=== PATIENT | female | born 1990 | race Caucasian/White ===

== ENCOUNTER 2018-12-28 06:26 | Inpatient (IN) | payer MEDICAID ==
[2018-12-28] MEDS ORDERED: LACTATED RINGER'S 1,000 ML IV (07:15)
[2018-12-28] MEDS ORDERED: BUTORPHANOL 2 MG INJ IV (07:30)
[2018-12-28] MEDS ORDERED: CARBOPROST 250 MCG INJ IM (07:30)
[2018-12-28] MEDS ORDERED: OXYTOCIN 30 UNITS/LR 500 ML IV ×2 (07:30)
[2018-12-28] MEDS ORDERED: MISOPROSTOL 200 MCG TAB PR (07:30)
[2018-12-28] MEDS ORDERED: METHYLERGONOVINE 0.2 MG INJ IM (07:30)
[2018-12-28] MEDS ORDERED: LIDOCAINE 1% (MPF) 30 ML INJ INJ (07:30)
[2018-12-28] MEDS ORDERED: IBUPROFEN 600 MG TAB PO (07:30)
[2018-12-28] MEDS: LACTATED RINGER'S 1,000 ML IV ×3 (07:44→22:31)
[2018-12-28 08:02] LABS: ADD MAN DIFF? NO
[2018-12-28 08:06] LABS: BASOPHILS % 0.3 % (0.0-2.0); EOSINOPHILS # 0.1 10^3/ul (0.0-0.5); EOSINOPHILS % 0.4 % (0.0-7.0); HEMATOCRIT 38.7 % (37.0-47.0); HEMOGLOBIN 13.1 g/dl (12.0-16.0); LYMPHOCYTES % 12.9 % (15.0-51.0); MEAN CORPUSCULAR HEMOGLOBIN 31.8 pg (29.0-33.0); MEAN CORPUSCULAR HGB CONC 33.9 g/dl (32.0-37.0); MEAN CORPUSCULAR VOLUME 93.9 fl (82.0-101.0); MEAN PLATELET VOLUME 11.1 fl (7.4-10.4); MONOCYTE # 0.9 10^3/ul (0.3-0.9); MONOCYTES % 5.8 % (0.0-11.0); NEUTROPHIL # 12.6 10^3/ul (1.6-7.5); NEUTROPHILS % 79.8 % (39.0-77.0); PLATELET COUNT 284 10^3/UL (140-415); RED BLOOD COUNT 4.12 10^6/ul (4.20-5.40); RED CELL DISTRIBUTION WIDTH 12.1 % (11.5-14.5)
[2018-12-28 08:06] LABS: WHITE BLOOD COUNT 15.8 10^3/ul (4.8-10.8)
[2018-12-28 08:25] LABS: PROTIME 12.3 Sec (11.9-14.9)
[2018-12-28 08:26] LABS: PARTIAL THROMBOPLASTIN TIME 27.3 Sec (23.0-35.0)
[2018-12-28 08:54] LABS: HEPATITIS B SURFACE ANTIGEN NEGATIVE (NEGATIVE)
[2018-12-28 21:30] LABS: RAPID PLASMA REAGIN NONREACTIVE (NR)
[2018-12-29] MEDS ORDERED: FENTAnyl 2MCG/ML-ROPIV 0.2% 100 ML (00:58)
[2018-12-29] MEDS: LACTATED RINGER'S 1,000 ML IV ×4 (01:11→18:35)
[2018-12-29] MEDS ORDERED: NALOXONE (0.4 MG/ML) INJ IV (02:00)
[2018-12-29] MEDS ORDERED: ONDANSETRON 4 MG INJ IV (02:00)
[2018-12-29] MEDS ORDERED: DIPHENHYDRAMINE 50 MG INJ IV (02:00)
[2018-12-29] MEDS: FENTAnyl 2MCG/ML-ROPIV 0.2% 100 ML BAG EPI ×3 (04:00→16:53)
[2018-12-29] MEDS: OXYTOCIN 30 UNITS/LR 500 ML IV ×2 (09:13→22:37)
[2018-12-29] MEDS: MINERAL OIL LIGHT 10 ML VIAL TOP (23:00)
[2018-12-29] MEDS: LACTATED RINGER'S 1,000 ML IV* (23:13)
[2018-12-29] MEDS ORDERED: METHYLERGONOVINE 0.2 MG INJ IM (23:30)
[2018-12-29] MEDS ORDERED: HYDROCODONE/APAP (5/325) TAB PO (23:30)
[2018-12-29] MEDS ORDERED: MISOPROSTOL 200 MCG TAB PR (23:30)
[2018-12-29] MEDS ORDERED: OXYTOCIN 30 UNITS/LR 500 ML IV (23:30)
[2018-12-29] MEDS ORDERED: CARBOPROST 250 MCG INJ IM (23:30)
[2018-12-30] MEDS: WITCH HAZEL/GLYCERIN PAD PR (01:23)
[2018-12-30] MEDS: IBUPROFEN 600 MG TAB PO ×4 (01:23→19:32)
[2018-12-30] MEDS: BENZOCAINE 20% 56 ML SPRAY TOP (01:24)
[2018-12-30] MEDS: LANOLIN HPA 1 PKT TOP ×2 (01:25→11:53)
[2018-12-30] MEDS: OXYTOCIN 30 UNITS/LR 500 ML IV ×2 (02:47→09:13)
[2018-12-30] MEDS: LACTATED RINGER'S 1,000 ML IV* ×3 (07:13→20:56)
[2018-12-30 07:48] LABS: WHITE BLOOD COUNT 25.9 10^3/ul (4.8-10.8)
[2018-12-30 07:48] LABS: ABNORMAL IP MESSAGE 1; HEMATOCRIT 34.2 % (37.0-47.0); HEMOGLOBIN 11.7 g/dl (12.0-16.0); MEAN CORPUSCULAR HEMOGLOBIN 31.7 pg (29.0-33.0); MEAN CORPUSCULAR HGB CONC 34.2 g/dl (32.0-37.0); MEAN CORPUSCULAR VOLUME 92.7 fl (82.0-101.0); MEAN PLATELET VOLUME 10.9 fl (7.4-10.4); PLATELET COUNT 231 10^3/UL (140-415); RED BLOOD COUNT 3.69 10^6/ul (4.20-5.40); RED CELL DISTRIBUTION WIDTH 12.3 % (11.5-14.5)
[2018-12-30 07:51] LABS: ADD MAN DIFF? YES; POSITIVE DIFF @See below
[2018-12-30 10:11] LABS: ANISOCYTOSIS 1+ (0-0); BAND NEUTROPHILS #M 3.1 10^3/ul (0.0-0.6); BAND NEUTROPHILS % (M) 12 % (0-4); LYMPHOCYTES #M 1.2 10^3/ul (0.8-2.9); LYMPHOCYTES % (M) 5 % (15-51); MONOCYTE #M 0.7 10^3/ul (0.3-0.9); MONOCYTES % (M) 3 % (0-11); PLATELET ESTIMATE NORMAL; POLYCHROMASIA 3+ (0-0); REACTIVE LYMPHOCYTES #M 0.5 10^3/ul (0.0-0.0); REACTIVE LYMPHOCYTES% (M) 2 % (0-0); SEGMENTED NEUTROPHILS (M) % 78 % (39-77); SMUDGE%M 1 % (0-0)
[2018-12-31] MEDS: IBUPROFEN 600 MG TAB PO ×3 (00:40→12:00)
[2018-12-31] MEDS: LACTATED RINGER'S 1,000 ML IV* (06:27)
[2018-12-31 08:17] LABS: ADD MAN DIFF? NO
[2018-12-31 08:24] LABS: WHITE BLOOD COUNT 15.3 10^3/ul (4.8-10.8)
[2018-12-31 08:24] LABS: BASOPHILS % 0.3 % (0.0-2.0); EOSINOPHILS # 0.1 10^3/ul (0.0-0.5); EOSINOPHILS % 0.7 % (0.0-7.0); HEMATOCRIT 32.4 % (37.0-47.0); HEMOGLOBIN 10.9 g/dl (12.0-16.0); LYMPHOCYTES # 1.8 10^3/ul (0.8-2.9); MEAN CORPUSCULAR HGB CONC 33.6 g/dl (32.0-37.0); MEAN PLATELET VOLUME 11.4 fl (7.4-10.4); MONOCYTE # 0.8 10^3/ul (0.3-0.9); NEUTROPHIL # 12.4 10^3/ul (1.6-7.5); NEUTROPHILS % 81.2 % (39.0-77.0); PLATELET COUNT 254 10^3/UL (140-415); RED BLOOD COUNT 3.41 10^6/ul (4.20-5.40); RED CELL DISTRIBUTION WIDTH 12.6 % (11.5-14.5)
[2018-12-31] MEDS: DIPHTH/TET/ACEL PERTUSS (ADULT) 0.5 ML VIAL IM* (09:00)
[2018-12-31] MEDS: BENZOCAINE 20% 56 ML SPRAY TOP (10:14)
[2018-12-31] MEDS: WITCH HAZEL/GLYCERIN PAD PR (10:14)
== END 2018-12-31 15:15 | disposition home or self-care (01) | DRG 807 ==
LOC: OBT 06:26 → PP1 12-30 00:56 → L-D 06:28 → OBT 07:05 → L-D 07:05
PROVIDERS: Obstetrics & Gynecology
PROC: 10E0XZZ Delivery of Products of Conception, External Approach (ICD-10-PCS; principal; 2018-12-29)
PROC: 0HQ9XZZ Repair Perineum Skin, External Approach (ICD-10-PCS; 2018-12-29)
PROC: 0UQGXZZ Repair Vagina, External Approach (ICD-10-PCS; 2018-12-29)
DX: O70.0 First degree perineal laceration during delivery (principal); O69.81X0 Labor and delivery complicated by cord around neck, without compression, not applicable or unspecified; Z37.0 Single live birth; Z3A.39 39 weeks gestation of pregnancy
CPT/HCPCS: 62322; 76815; 85025; 85610; 85730; 86592; 86850; 86900; 86901; 87340; 99464